=== PATIENT | male | born 1955 | race Caucasian/White ===

== ENCOUNTER 2016-06-11 06:59 | Emergency (ER) | payer BC ==
[~2016-06-11] VITALS: Ht 198.1 cm; Wt 145.6 kg
[~2016-06-11 06:59] MED LIST: ASPI81TA28 PO; ATOR10TA82 PO; BRIM0.1S OPR; CLR10 PO; DOCU-94 PO; DORZ2SOL20 OPB; GLYB5TAB8 PO; LATA0.5S OPR; LISI-787 PO; METF-384 PO; NATE60TA PO; PRED1SUS3 OPR; PRLSR20 PO; SITA100T3 PO; SODI5OIN4 OPR
[2016-06-11 07:03] VITALS: TEMP 36.7; Ht 198.1 cm; Wt 145.6 kg
[2016-06-11] MEDS ORDERED: DIPHTHERIA/TETANUS/PERTUSSIS 0.5 ML SYR/VIAL IM. ONE (07:45)
--- NOTE | 2016-06-11 07:58 | DIAGNOSTIC IMAGING REPORT ---
LEFT TOE(S) MIN 2 VIEWS CLINICAL HISTORY: L great toe open wound COMPARISON STUDY: 08/19/2015. FINDINGS: Focal skin defect/wound at the dorsal aspect of the interphalangeal joint. There is again noted a fracture at the base of the distal phalanx. There may be partial bony bridging at the fracture fragment consistent with slight interval healing. However, the majority of the fracture remains nonunited. No new bony erosions identified. 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 Soft tissue swelling within the toe, unchanged. No radiopaque foreign bodies. IMPRESSION: 1. Slight interval healing at the fracture at the base of the distal phalanx of the first toe. However, the majority of the fracture remains nonunited. 2. Soft tissue laceration/wound at the level of the interphalangeal joint. No new underlying bony erosions to suggest osteomyelitis at this time. Electronically signed by: Mookie Pelletier M.D. 06/11/2016 7:56 AM Dictated Date/Time: 06/11/2016 7:52 AM
[2016-06-11] MEDS ORDERED: CEPH500C PO (08:33)
[2016-06-11] MEDS ORDERED: SULF800T23 PO (08:33)
[2016-06-11] MEDS ORDERED: AMLO2.5T PO (08:45)
--- NOTE | 2016-06-11 09:51 | EMERGENCY ROOM VISIT NOTE ---
History First contact with patient: 07:07 Chief Complaint: LACERATION/CUT (SUT/DERMABOND) Stated Complaint: BIG TOE OF LFT FOOT CUT BLEEDING Nursing Triage Summary: Left great toe hanging inside the sock. Almost amputated. Bleeding. History of Present Illness The patient is a 60 year old male who presents to the Emergency Room with complaints of an open wound to his left great toe. The patient has a history of diabetic neuropathy and foot drop. He wears an AFO. He was attempting to put his foot into his shoe this morning. He then noticed that his sock felt wet. When he removed the sock, he noticed that his toe did not feel right. The patient has poor vision secondary to diabetes and macular degeneration. The patient had a similar open wound to the left great toe last August. He is under the care of Dr. Zamorano. The patient denies any pain, saying that he really does not have any feeling in his feet. The patient is uncertain of his last tetanus immunization. Review of Systems 10 system review was performed and was negative except for pertinent positives and negatives as indicated in history of present illness Past Medical/Surgical History Medical Problems: (1) Blindness of one eye (2) Diabetes (3) Dyslipidemia (4) Glaucoma (5) HTN (hypertension) (6) Legionnaire's disease Surgical Problems: (1) Corneal transplant status (2) History of laser photocoagulation of retina Family History Unremarkable Social History Smoking Status: Never Smoker Drug Use: none Housing Status: lives with family Occupation Status: employed Current/Historical Medications Scheduled Amlodipine (Norvasc), 2.5 MG PO DAILY Aspirin (Aspirin Ec), 81 MG PO DAILY Atorvastatin (Lipitor), 10 MG PO HS Brimonidine Tartrate (Alphagan P Oph), 1 DROP OPR BID Cephalexin Monohydrate (Keflex), 500 MG PO QID Docusate Sodium (Colace), 200 MG PO DAILY Dorzolamide Hcl-Timolol Maleat (Cosopt Oph), 1 DROP OPB BID Glyburide (Micronase), 10 MG PO BID Latanoprost (Xalatan 0.005% Oph Cami), 1 DROP OPR HS Lisinopril/Hctz (Zestoretic 20MG/12.5MG), 2 TABS PO HS Metformin Hcl (Glucophage), 1,000 MG PO BID Nateglinide (Starlix), 120 MG PO QAM Nateglinide (Starlix), 60 MG PO LUNCH Nateglinide (Starlix), 120 MG PO DINNER Nateglinide (Starlix), 60 MG PO HS Omeprazole (Prilosec), 20 MG PO DAILY Prednisolone Acetate 1% Oph (Pred Forte 1% Oph), 1 DROP OPR HS Sitagliptin Phosphate (Januvia), 100 MG PO QAM Sodium Chloride Oph (Jori 128 Oph), 1 APPLN OPR BID Sulfa/Trimethoprim (Bactrim Ds 800MG/160MG), 1 TAB PO BID Scheduled PRN Loratadine (Claritin), 10 MG PO DAILY PRN for Allergy Symptoms Allergies Coded Allergies: No Known Allergies (Unverified , 06/11/16) Physical Exam Vital Signs Date Time Temp Pulse Resp B/P Pulse Ox O2 Delivery O2 Flow Rate FiO2 06/11/16 09:37 72 16 169/85 98 Room Air 06/11/16 08:10 74 19 147/92 97 Room Air 06/11/16 07:03 36.7 82 20 165/81 94 Room Air Physical Exam CONSTITUTIONAL: Healthy and well nourished. Alert and oriented X 3 with positive affect. HEENT: Normocephalic, atraumatic. Pupils equal, round and reactive. NECK: Full active range of motion without discomfort. RESPIRATORY: Clear to auscultation bilaterally with no wheezing, crackles, rhonchi or stridor. CARDIOVASCULAR: Regular rate and rhythm with no murmurs, rubs or gallops. MUSCULOSKELETAL: Examination of the left great toe shows a wide open wound into the dorsal IP joint. Total laceration length is 8 cm. No active bleeding. INTEGUMENTARY: No rash or other significant dermatologic conditions noted. NEUROLOGIC: The patient has no sensation of the left foot. Medical Decision & Procedures ER Provider Diagnostic Interpretation: My interpretation of left great toe x-rays does not show any acute fractures. The wound with joint exposure is noted. Radiologist report is as follows: LEFT TOE(S) MIN 2 VIEWS CLINICAL HISTORY: L great toe open wound COMPARISON STUDY: 08/19/2015. FINDINGS: Focal skin defect/wound at the dorsal aspect of the interphalangeal joint. There is again noted a fracture at the base of the distal phalanx. There may be partial bony bridging at the fracture fragment consistent with slight interval healing. However, the majority of the fracture remains nonunited. No new bony erosions identified. 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 Soft tissue swelling within the toe, unchanged. No radiopaque foreign bodies. IMPRESSION: 1. Slight interval healing at the fracture at the base of the distal phalanx of the first toe. However, the majority of the fracture remains nonunited. 2. Soft tissue laceration/wound at the level of the interphalangeal joint. No new underlying bony erosions to suggest osteomyelitis at this time. Medications Administered Medications (Trade) Dose Ordered Sig/Griselda Route Start Time Stop Time Status Last Admin Dose Admin Diphtheria/ Pertussis/Tetanus Vacc (Adacel Inj) 0.5 ml ONCE ONCE IM. 06/11/16 07:45 06/11/16 07:46 DC 06/11/16 08:23 0.5 ML Procedure Wound irrigation and primary closure was performed by our physician cataloging assistant student under my direct supervision. The wound was initially power lavaged with 3 L of normal saline. The peripheral tissue is inclines with iodine and allowed to dry. Sterile field was created. The wound was then approximated using 3-0 nylon simple interrupted sutures 8. Bacitracin dressing and bradford taping were applied. ED Course Patient history and physical exam were performed. Nurse's notes were reviewed. I did review documentation from last year, showing that the patient's last tetanus immunization was in 2007. The patient was administered Adacel IM. Saline gauzes was applied to the toe. X-rays of the left great toe does not show any acute fractures. I did speak with Dr. Chpaman's physician cataloging assistant, with Dr. Chapman reviewing x- rays. He suggested thorough irrigation of the wound, then closed the wound with stitches. He wanted the patient to call the office to set up an appointment with Dr. Zamorano. This was discussed with the patient. Joint irrigation and closure were performed WITHOUT digital block anesthesia as the patient has no sensation in his feet. A bacitracin dressing and bradford taping were applied. The patient's foot was too large to fit inside a postop shoe. The patient was provided prescriptions for Keflex and Bactrim DS antibiotics. He was instructed to call Dr. Zamorano's office for an appointment. He was instructed to be very careful that he does not reopen the wound. The patient was happy with plan of care, and voiced understanding of all discharge instructions. Impression Primary Impression: Laceration of great toe, left, complicated Departure Information Prescriptions Sulfa/Trimethoprim (Bactrim Ds 800MG/160MG) Tab 1 TAB PO BID, #14 TAB Prov: Endy Espinoza PA 06/11/16 Cephalexin Monohydrate (Keflex) 500 Mg Cap 500 MG PO QID, #28 CAP Prov: Endy Espinoza PA 06/11/16 Referrals Jef Mansfield M.D.([facility]) (PCP) Patient Instructions My [facility] Problem Qualifiers Primary Impression: Laceration of great toe, left, complicated Encounter type: initial encounter Qualified Codes: S91.112A - Laceration without foreign body of left great toe without damage to nail, initial encounter
[2016-06-11 10:25] VITALS: BP 167/87; PULSE 70; O2SAT 98
== END 2016-06-11 10:28 | disposition home or self-care (01) ==
LOC: C.EDB 07:01 → C.EDA 10:28
DX: S91.112A Laceration without foreign body of left great toe without damage to nail, initial encounter (principal); X58.XXXA Exposure to other specified factors, initial encounter; E11.21 Type 2 diabetes mellitus with diabetic nephropathy; M21.379 Foot drop, unspecified foot; H35.30 Unspecified macular degeneration; H54.40 Blindness, one eye, unspecified eye; E78.5 Hyperlipidemia, unspecified; H40.9 Unspecified glaucoma; I10 Essential (primary) hypertension; A48.1 Legionnaires' disease; Z94.7 Corneal transplant status; Z79.82 Long term (current) use of aspirin; Z23 Encounter for immunization